=== PATIENT | female | born 1930 | race Two or more races ===

== ENCOUNTER 2018-08-09 10:32 | Emergency (ER) | payer MEDICARE, OTHER ==
[~2018-08-09] VITALS: Ht 165.1 cm; Wt 81.0 kg
[2018-08-09 10:40] VITALS: BP 162/102; PULSE 92; RESP 18; Ht 165.1 cm; Wt 81.0 kg
--- NOTE | 2018-08-09 11:54 | ERD ---
ER Documentation Chief Complaint Chief Complaint back pain x 1 week HPI The patient is a 88-year-old female, presenting to the ER because of chronic low back pain, worse for the last week, denies fecal/urine incontinence, trauma. She denies fever, chills, neck pain, chest pain, dyspnea, abdominal pain, vomiting, complains of constipation, denies dysuria.. She does not smoke nor drink. Past medical history: Dyslipidemia, hypertension, chronic low back pain Past surgical history: Left knee surgery about 10 years ago ROS All systems reviewed and are negative except as per history of present illness. Medications Home Meds Active Scripts Polyethylene Glycol* (Miralax*) 17 Gm Powd.pack, 17 GM PO DAILY, #7 Prov:KARINE ZAIDI MD 08/09/18 Reported Medications Celecoxib* (Celebrex*) 200 Mg Capsule, 200 MG PO BID, CAP 08/09/18 Tramadol Hcl* (Ultram*) 50 Mg Tablet, 50 MG PO TID PRN for PAIN, TAB 08/09/18 Losartan-Hydrochlorothiazide (Losartan-HCTZ) 50-12.5 Mg Tab, 1 TAB PO DAILY, TAB 08/09/18 Atorvastatin Calcium (Atorvastatin Calcium) 10 Mg Tablet, 10 MG PO QHS, #30 TAB 08/09/18 Lubiprostone* (Amitiza*) 24 Mcg Capsule, 24 MCG PO BID, #60 CAP 08/09/18 Allergies Allergies: Coded Allergies: No Known Allergy (Unverified , 08/09/18) PMhx/Soc History of Surgery: Yes (left knee surgery) Anesthesia Reaction: No Hx Neurological Disorder: No Hx Respiratory Disorders: No Hx Cardiac Disorders: No Hx Psychiatric Problems: No Hx Miscellaneous Medical Probl: No Hx Alcohol Use: No Hx Substance Use: No Hx Tobacco Use: No Smoking Status: Never smoker Physical Exam Vitals Vital Signs Date Temp Pulse Resp B/P (MAP) Pulse Ox O2 O2 Flow FiO2 Time Delivery Rate 08/09/18 98.1 92 18 162/102 97 10:40 (122) Physical Exam Const: No acute distress. Head: Atraumatic. Eyes: Normal Conjunctiva. ENT: Normal External Ears, Nose and Mouth. Neck: Full range of motion. No meningismus. Resp: Clear to auscultation bilaterally. Cardio: Regular rate and rhythm. Abd: Soft, non distended, normal bowel sounds, non tender. Skin: No petechiae or rashes. Back: No midline or flank tenderness. Ext: No cyanosis, or edema. Neur: Awake and alert. No focal deficit Psych: Normal Mood and Affect. Results 24 hrs Laboratory Tests Test 08/09/18 13:11 Bedside Urine pH (LAB) 5.5 Bedside Urine Protein (LAB) Trace Bedside Urine Glucose (UA) Negative Bedside Urine Ketones (LAB) Negative Bedside Urine Blood Trace-lysed Bedside Urine Nitrite (LAB) Negative Bedside Urine Leukocyte Esterase (L Trace Current Medications Medications Dose Sig/José Luis Start Time Status Last (Trade) Ordered Route PRN Stop Time Admin Dose Reason Admin 1 tab ONCE ONCE 08/09/18 DC 08/09/18 Acetaminophen PO 12:00 12:08 / 08/09/18 12:01 Hydrocodone Bitart ([place] (5/325)) Ondansetron 4 mg ONCE STAT 08/09/18 DC 08/09/18 HCl (Zofran ODT 12:00 12:08 Odt) 08/09/18 12:01 Procedures/MDM MEDICAL MAKING DECISION: The patient is a 88-year-old female, presenting with acute on chronic low back pain, constipation. She was treated with [place] 5 mg p.o. for pain and Zofran ODT for nausea with good response. She is unable to provide a urine specimen, is stable for outpatient follow-up The differential diagnoses considered include but are not limited to caudal equina syndrome, spinal abscess, DJD, diskitis, lumbar radiculopathy. Departure Diagnosis: Primary Impression: Back pain Additional Impression: Constipation Condition: Good Comments He was advised to continue celecoxib, tramadol, discharged with Miralax I discussed the findings with the patient. I advised the patient to follow-up with the primary physician in about 2-3 days, sooner if needed and return if any concern. Disclaimer: Inadvertent spelling and grammatical errors are likely due to EHR/dictation software use and do not reflect on the overall quality of patient care. Also, please note that the electronic time recorded on this note does not necessarily reflect the actual time of the patient encounter. KARINE ZAIDI MD August 09, 2018 11:54
[2018-08-09] MEDS ORDERED: HYDROCODONE/APAP (5/325) TAB PO ONE (12:00)
[2018-08-09] MEDS ORDERED: ONDANSETRON (ODT) 4 MG TAB ODT STA (12:00)
[2018-08-09] MEDS ORDERED: POLY17PO6 PO (13:15)
[2018-08-09] MEDS ORDERED: LOSA1TAB22 PO (13:17)
[2018-08-09] MEDS ORDERED: LUBI24CA7 PO (13:17)
[2018-08-09] MEDS ORDERED: ATOR10TA65 PO (13:17)
[2018-08-09] MEDS ORDERED: TRAM50TA PO (13:18)
[2018-08-09] MEDS ORDERED: CELE200C PO (13:18)
== END 2018-08-09 13:59 | disposition home or self-care (01) ==
LOC: E/R 10:32
DX: M54.5 Low back pain (principal); K59.00 Constipation, unspecified
CPT/HCPCS: 81003; 99283